=== PATIENT | female | born 1975 | race American Indian/Alaskan Native ===

== ENCOUNTER 2022-12-26 07:51 | Day surgery (SDC) | payer MEDICAID ==
[~2022-12-26 07:51] MED LIST: Bupivacaine 0.5% 50 ML MDV ONE; Dexamethasone 4 MG/ML SDV ONE; Glycopyrrolate 0.2 MG/ML 5 ML MDV ONE; Lidocaine 1% with EPINEPHrine 1:100,000 50 ML MDV ONE; Neostigmine Methylsulfate 1 MG/ML 5 ML Syringe ONE; Ondansetron 4 MG/2 ML SDV ONE; Propofol 200 MG/20 ML SDV ONE; Rocuronium 50 MG/5 ML Vial ONE; Succinylcholine 200 MG/10 ML MDV ONE; fentaNYL 250 MCG/5 ML SDV ONE
[2022-12-26] MEDS ORDERED: Sodium Chloride 0.9% 1,000 ML IV SCH (09:00)
[2022-12-26] MEDS ORDERED: metroNIDAZOLE/Normal Saline 500 MG in Premix Bag 1 BAG IV ONE (09:00)
[2022-12-26] MEDS ORDERED: Albuterol/Ipratropium 3.0-0.5 MG/3 ML Neb Soln NEB ONE (09:00)
[2022-12-26] MEDS ORDERED: ceFAZolin 2 GM in Sodium Chloride 0.9% 50 ML IV ONE (09:30)
[2022-12-26] MEDS ORDERED: hydrOXYzine HCL 100 MG/2 ML SDV IM PRN (09:56)
[2022-12-26] MEDS ORDERED: Acetaminophen/HYDROcodone 325-5 MG Tab PO PRN (09:56)
[2022-12-26] MEDS ORDERED: Zolpidem 5 MG Tab PO PRN (09:56)
[2022-12-26] MEDS ORDERED: Benzocaine/Cetylpyridinium/Menthol Lozenge MUCMEM PRN (09:56)
[2022-12-26] MEDS ORDERED: fentaNYL 100 MCG/2 ML SDV IVPUSH PRN ×3 (09:56)
[2022-12-26] MEDS ORDERED: Docusate Sodium 100 MG Cap PO PRN (09:56)
[2022-12-26] MEDS ORDERED: Ondansetron 4 MG/2 ML SDV IVPUSH PRN (09:56)
[2022-12-26] MEDS ORDERED: fentaNYL 250 MCG/5 ML SDV ONE ×2 (10:10→10:37)
[2022-12-26] MEDS ORDERED: Lactated Ringers 1,000 ML ONE (10:57)
[2022-12-26] MEDS ORDERED: Bupivacaine 0.5% 50 ML MDV INJECT ONE ×2 (11:01)
[2022-12-26] MEDS ORDERED: Lidocaine 1% with EPINEPHrine 1:100,000 50 ML MDV INJECT ONE ×2 (11:02)
[2022-12-26] MEDS ORDERED: Rocuronium 50 MG/5 ML Vial ONE (11:41)
[2022-12-26] MEDS ORDERED: Sugammadex Sodium 200 MG/2 ML VIAL ONE (11:59)
[2022-12-26] MEDS ORDERED: Scopolamine 1.5 MG Transdermal Patch ONE (12:03)
[2022-12-26] MEDS ORDERED: Ketorolac 30 MG/ML SDV ONE (12:05)
[2022-12-26] MEDS ORDERED: Scopolamine 1.5 MG Transdermal Patch TOP ONE (13:30)
[2022-12-26] MEDS ORDERED: oxyCODONE 5 MG Tab PO PRN (13:43)
== END 2022-12-26 14:50 | disposition home or self-care (01) ==
LOC: JP.SDS 07:51
PROVIDERS: ATTEND Surgery
DX: K43.9 Ventral hernia without obstruction or gangrene (principal); I10 Essential (primary) hypertension; E87.6 Hypokalemia; E66.9 Obesity, unspecified; F31.9 Bipolar disorder, unspecified; F17.200 Nicotine dependence, unspecified, uncomplicated; E11.9 Type 2 diabetes mellitus without complications; Z68.37 Body mass index [BMI] 37.0-37.9, adult; Z88.5 Allergy status to narcotic agent; Z79.84 Long term (current) use of oral hypoglycemic drugs; Z79.899 Other long term (current) drug therapy
CPT/HCPCS: 49595; A9270; C1713; C1781; J0171; J0330; J0690; J1100; J1885; J2405; J2704; J2710; J2795; J3010; J3490; J7030; J7120; J7620